=== PATIENT | male | born 1955 | race Caucasian/White ===

== ENCOUNTER → 2017-10-19 | Outpatient (CLI) | payer OTHER ==
[~2017-10-19] MED LIST: GADOBUTROL 10 ML VIAL IVP ONE
== END ==
LOC: FIMAGING 09:48
PROVIDERS: ATTEND Surgery
DX: H93.12 Tinnitus, left ear (principal); Q79.6 Ehlers-Danlos syndromes; I71.3 Abdominal aortic aneurysm, ruptured; G96.19 Other disorders of meninges, not elsewhere classified; R94.02 Abnormal brain scan
CPT/HCPCS: A9585

== ENCOUNTER → 2017-10-27 | Outpatient (CLI) | payer OTHER ==
[~2017-10-27] MED LIST changes: -GADOBUTROL 10 ML VIAL IVP ONE; +LIDOCAINE 1% 300 MG/30 ML SDV ONE
[2017-10-27 12:28] LABS: CSF APPEARANCE CLEAR (CLEAR); CSF COLOR COLORLESS (COLORLESS); WBC, CSF 0 /mm3 (0-5)
[2017-10-27 14:04] LABS: PROTEIN, CSF 79 mg/dL (12-60)
== END ==
LOC: FIMAGING 08:28
PROVIDERS: ATTEND Surgery
PROC: 009U3ZX Drainage of Spinal Canal, Percutaneous Approach, Diagnostic (ICD-10-PCS; principal; 2017-10-27)
DX: M54.2 Cervicalgia (principal); R93.0 Abnormal findings on diagnostic imaging of skull and head, not elsewhere classified

== ENCOUNTER → 2017-11-20 | Outpatient (CLI) | payer OTHER ==
[~2017-11-20] MED LIST changes: +IOPAMIDOL (ISOVUE 370) 100 ML BTL IV ONE; -LIDOCAINE 1% 300 MG/30 ML SDV ONE
== END ==
LOC: FIMAGING 08:38
PROVIDERS: ATTEND Psychiatry & Neurology Neurology
DX: H93.A2 Pulsatile tinnitus, left ear (principal); I65.23 Occlusion and stenosis of bilateral carotid arteries
CPT/HCPCS: Q9967

== ENCOUNTER 2019-02-28 06:52 | Emergency (ER) | payer OTHER ==
[2019-02-28 07:22] LABS: PLATELET COUNT 183 10^3/uL (150-400)
[2019-02-28] MEDS ORDERED: NS 500 ML IV ONE (07:49)
--- NOTE | 2019-02-28 07:53 | EDPHY ---
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 Onset of intermittent substernal chest pain 2 months ago. The pain is now persistent x2 weeks. The pain radiates to the back and is moderate, 7/10. The pain increases with movement. No associated shortness of breath, dizziness or diaphoresis. No exertional pain. REVIEW OF SYSTEMS: complete 10 point ROS reviewed and is negative except for the noted elements in the HPI - Personal History Current Tetanus/Diphtheria Vaccine: Yes Current Tetanus Diphtheria and Acellular Pertussis (TDAP): Yes - Medical/Surgical History Hx Asthma: No Hx Chronic Respiratory Disease: No Hx Diabetes: Yes Hx Cardiac Disease: Yes Hx Renal Disease: No Hx Cirrhosis: No Hx Alcoholism: No Hx HIV/AIDS: No Hx Splenectomy or Spleen Trauma: No Other PMH: AAA with repair, DM, joaquin-danlos syndrome - Family History Significant Family History: No pertinent family hx - Social History Smoking Status: Current every day smoker - Physical Exam Exam: General Appearance: Alert, pleasant Eyes: Pupils equal and round, no conjunctival pallor or injection ENT, Mouth: Mucous membranes moist Neck: Normal inspection Respiratory: Lungs are clear to auscultation Cardiovascular: Irregular rate and rhythm Gastrointestinal: Abdomen is soft and nontender Neurological: A&O, nonfocal, normal gait Skin: Warm and dry Extremities: Nontender, no pedal edema Psychiatric: Mood and affect normal Constitutional: Initial Vital Signs Temperature (C) 36.5 C 02/28/19 06:55 Heart Rate 51 L 02/28/19 06:55 Respiratory Rate 16 02/28/19 06:55 Blood Pressure 160/70 H 02/28/19 06:55 O2 Sat (%) 94 02/28/19 06:55 O2 Delivery Mode Room Air Allergies/Adverse Reactions: carbamazepine Allergy (Verified 02/28/19 09:38) Itching shellfish derived Allergy (Verified 02/28/19 07:01) Home Medications: Medication Instructions Recorded Bimatoprost 0.01% [Lumigan 0.01% 2 drop EACHEYE 10/25/17 (*)] metFORMIN HCL [Glucophage 500 mg 500 mg PO BIDMEAL 10/25/17 (*)] Medical Decision Making - Diagnostics EKG Interpretation: EKG interpreted by me reveals sinus rhythm, rate 83, ventricular bigeminy, LVH. Interpretation: Abnormal EKG Imaging Results: Imaging Impressions Chest X-Ray 02/28/19 07:15 Impression: Clear lungs. No acute process. Chest/Thorax CTA 02/28/19 07:50 Impression: 1. No visible etiology for the patient's pain. 2. Coronary artery atherosclerosis. 3. Stable small pulmonary nodules since 2008 compatible with a benign etiology. 4. Mild centrilobular and paraseptal emphysema. 5. Additional findings as above. Findings discussed with Anastasia Nair on 02/28/2019 at 8:44 a.m. 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 Stat EKG reveals no evidence of ischemia. Chest x-ray is unremarkable. Concern for aortic dissection, CTA chest performed and reveals COPD and coronary artery disease. No evidence of central pulmonary embolism or aortic dissection. Results discussed with the patient and his . He continues to have 7/10 chest pain. Unsure if he took aspirin this morning. Options discussed with the patient, shared decision making. Will admit for further evaluation of chest pain. The patient was stable throughout his emergency department stay. The hospitalist service was consulted for admission. Repeat EKG unchanged and repeat troponin normal. Differential Diagnosis: Differential diagnosis includes though it is not limited to pneumonia, pneumothorax, pulmonary embolism, aortic dissection, pericarditis, acute coronary syndrome. - Data Points Laboratory Results: Laboratory Results 02/28/19 07:11 02/28/19 07:11 02/28/19 02/28/19 02/28/19 07:15 07:11 07:11 WBC RBC Hgb Hct MCV MCH MCHC RDW Plt Count MPV Neut % (Auto) Lymph % (Auto) [place] % (Auto) Eos % (Auto) Baso % (Auto) Nucleat RBC Rel Count Absolute Neuts (auto) Absolute Lymphs (auto) Absolute Monos (auto) Absolute Eos (auto) Absolute Basos (auto) Absolute Nucleated RBC Immature Gran % Immature Gran # D-Dimer 0.99 ug/mLFEU H ug/mLFEU (0.00-0.50) Sodium Potassium Chloride Carbon Dioxide Anion Gap BUN Creatinine Estimated GFR Glucose Calcium Magnesium 2.2 mg/dL mg/dL (1.6-2.3) POC Troponin I 0.00 ng/mL ng/mL (0.00-0.08) NT-Pro-B Natriuret Pep 02/28/19 02/28/19 07:11 07:11 WBC 9.67 10^3/uL H 10^3/uL (3.80-9.50) RBC 5.27 10^6/uL 10^6/uL (4.40-6.38) Hgb 17.0 g/dL g/dL (13.7-17.5) Hct 47.8 % % (40.0-51.0) MCV 90.7 fL fL (81.5-99.8) MCH 32.3 pg pg (27.9-34.1) MCHC 35.6 g/dL g/dL (32.4-36.7) RDW 13.1 % % (11.5-15.2) Plt Count 183 10^3/uL 10^3/uL (150-400) MPV 8.9 fL fL (8.7-11.7) Neut % (Auto) 59.1 % % (39.3-74.2) Lymph % (Auto) 30.3 % % (15.0-45.0) [place] % (Auto) 7.5 % % (4.5-13.0) Eos % (Auto) 2.1 % % (0.6-7.6) Baso % (Auto) 0.7 % % (0.3-1.7) Nucleat RBC Rel Count 0.0 % % (0.0-0.2) Absolute Neuts (auto) 5.71 10^3/uL 10^3/uL (1.70-6.50) Absolute Lymphs (auto) 2.93 10^3/uL 10^3/uL (1.00-3.00) Absolute Monos (auto) 0.73 10^3/uL 10^3/uL (0.30-0.80) Absolute Eos (auto) 0.20 10^3/uL 10^3/uL (0.03-0.40) Absolute Basos (auto) 0.07 10^3/uL 10^3/uL (0.02-0.10) Absolute Nucleated RBC 0.00 10^3/uL 10^3/uL (0-0.01) Immature Gran % 0.3 % % (0.0-1.1) Immature Gran # 0.03 10^3/uL 10^3/uL (0.00-0.10) D-Dimer Sodium 141 mEq/L mEq/L (135-145) Potassium 4.7 mEq/L mEq/L (3.5-5.2) Chloride 110 mEq/L mEq/L (97-110) Carbon Dioxide 21 mEq/l L mEq/l (22-31) Anion Gap 10 mEq/L mEq/L (6-14) BUN 27 mg/dL H mg/dL (7-23) Creatinine 1.0 mg/dL mg/dL (0.7-1.3) Estimated GFR > 60 Glucose 149 mg/dL H mg/dL (70-100) Calcium 9.6 mg/dL mg/dL (8.5-10.4) Magnesium POC Troponin I NT-Pro-B Natriuret Pep 416 pg/mL H pg/mL (0-125) Medications Given: Discontinued Medications Aspirin (Aspirin) 324 mg PO EDNOW ONE Stop: 02/28/19 08:57 Last Admin: 02/28/19 09:18 Dose: 324 mg Sodium Chloride (Ns) 500 mls @ 1,000 mls/hr IV EDNOW ONE PRN Reason: Protocol Stop: 02/28/19 08:18 Last Admin: 02/28/19 08:10 Dose: 500 mls Metformin HCl (Glucophage Xr) 500 mg PO ONCE ONE Stop: 02/28/19 09:34 Last Admin: 02/28/19 09:48 Dose: Not Given Point of Care Test Results: Chemistry 02/28/19 07:15 POC Troponin I 0.00 ng/mL ng/mL (0.00-0.08) Departure - Departure Disposition: [facility] Inpatient Acute Clinical Impression: Chest pain Qualifiers: Chest pain type: precordial pain Qualified Code(s): R07.2 - Precordial pain Condition: Fair
[2019-02-28] MEDS ORDERED: IOPAMIDOL (ISOVUE 370) 100 ML BTL IV ONE (07:54)
[2019-02-28] MEDS ORDERED: ASPIRIN 81 MG CHEWABLE TAB PO ONE (08:56)
[2019-02-28] MEDS ORDERED: metFORMIN SR 500 MG TAB PO ONE (09:33)
[2019-02-28] MEDS ORDERED: ACETAMINOPHEN 325 MG TAB PO PRN (09:48)
[2019-02-28] MEDS ORDERED: NITROGLYCERIN 0.4 MG BTL SL PRN (09:48)
[2019-02-28] MEDS ORDERED: ONDANSETRON 4 MG/2 ML VIAL IVP PRN (09:48)
[2019-02-28] MEDS ORDERED: D50W 25 GM/50 ML SYR IVP PRN (09:50)
--- NOTE | 2019-02-28 09:51 | PDGENHP ---
History and Physical - Chief Complaint chest pain - History of Present Illness 63yo M with Joaquin-Danlos, prior aortic aneurysm rupture s/p grafting, diabetes , tobacco use presents with chest pain. This has been ongoing for months. He came in today because it was more severe than usual. Lasts hours at a time. Substernal with some radiation to back. Not exertional or pleuritic. Sometimes gets better with certain movements and when he drinks cold water. He has no prior history of coronary disease. Last stress test was >10 years ago. In the ED , initial ECG and troponin were negative for active ischemia. He had a CTA of his chest that was negative for PE or aortic aneurysm. He is being admitted for further evaluation. 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 No premature family CAD. - Social History Smoking Status: Current every day smoker (1 pack/day for >40 years) Alcohol Use: None Drug Use: None Additional social history: Lives with , who is at bedside. Review of Systems Review of Systems: ROS: 10pt was reviewed & negative except for what was stated in HPI & below Physical Exam Physical Exam: Temp Pulse Resp BP Pulse Ox 36.5 C 67 18 147/107 H 95 02/28/19 06:55 02/28/19 09:18 02/28/19 09:18 02/28/19 09:18 02/28/19 09:18 Constitutional: no apparent distress, appears nourished, not in pain Eyes: PERRL, anicteric sclera, EOMI Ears, Nose, Mouth, Throat: moist mucous membranes, hearing normal, ears appear normal, no oral mucosal ulcers Cardiovascular: regular rate and rhythym, no murmur, rub, or gallop, other ( appears to be in bigeminy), No edema Respiratory: no respiratory distress, no rales or rhonchi, clear to auscultation Gastrointestinal: normoactive bowel sounds, soft, non-tender abdomen, no palpable masses Genitourinary: no bladder fullness, no bladder tenderness Skin: warm, normal color, no rashes or abrasions, no fluctuance, no induration, No mottled Musculoskeletal: full muscle strength, no muscle tenderness, normal joint ROM, no joint effusions Neurologic: AAOx3 Psychiatric: interacting appropriately Lab Data & Imaging Review 02/28/19 07:11 02/28/19 07:11 WBC 9.67 10^3/uL (3.80-9.50) H 02/28/19 07:11 RBC 5.27 10^6/uL (4.40-6.38) 02/28/19 07:11 Hgb 17.0 g/dL (13.7-17.5) 02/28/19 07:11 Hct 47.8 % (40.0-51.0) 02/28/19 07:11 MCV 90.7 fL (81.5-99.8) 02/28/19 07:11 MCH 32.3 pg (27.9-34.1) 02/28/19 07:11 MCHC 35.6 g/dL (32.4-36.7) 02/28/19 07:11 RDW 13.1 % (11.5-15.2) 02/28/19 07:11 Plt Count 183 10^3/uL (150-400) 02/28/19 07:11 MPV 8.9 fL (8.7-11.7) 02/28/19 07:11 Neut % (Auto) 59.1 % (39.3-74.2) 02/28/19 07:11 Lymph % (Auto) 30.3 % (15.0-45.0) 02/28/19 07:11 [place] % (Auto) 7.5 % (4.5-13.0) 02/28/19 07:11 Eos % (Auto) 2.1 % (0.6-7.6) 02/28/19 07:11 Baso % (Auto) 0.7 % (0.3-1.7) 02/28/19 07:11 Nucleat RBC Rel Count 0.0 % (0.0-0.2) 02/28/19 07:11 Absolute Neuts (auto) 5.71 10^3/uL (1.70-6.50) 02/28/19 07:11 Absolute Lymphs (auto) 2.93 10^3/uL (1.00-3.00) 02/28/19 07:11 Absolute Monos (auto) 0.73 10^3/uL (0.30-0.80) 02/28/19 07:11 Absolute Eos (auto) 0.20 10^3/uL (0.03-0.40) 02/28/19 07:11 Absolute Basos (auto) 0.07 10^3/uL (0.02-0.10) 02/28/19 07:11 Absolute Nucleated RBC 0.00 10^3/uL (0-0.01) 02/28/19 07:11 Immature Gran % 0.3 % (0.0-1.1) 02/28/19 07:11 Immature Gran # 0.03 10^3/uL (0.00-0.10) 02/28/19 07:11 D-Dimer 0.99 ug/mLFEU (0.00-0.50) H 02/28/19 07:11 Sodium 141 mEq/L (135-145) 02/28/19 07:11 Potassium 4.7 mEq/L (3.5-5.2) 02/28/19 07:11 Chloride 110 mEq/L (97-110) 02/28/19 07:11 Carbon Dioxide 21 mEq/l (22-31) L 02/28/19 07:11 Anion Gap 10 mEq/L (6-14) 02/28/19 07:11 BUN 27 mg/dL (7-23) H 02/28/19 07:11 Creatinine 1.0 mg/dL (0.7-1.3) 02/28/19 07:11 Estimated GFR > 60 02/28/19 07:11 Glucose 149 mg/dL (70-100) H 02/28/19 07:11 Calcium 9.6 mg/dL (8.5-10.4) 02/28/19 07:11 POC Troponin I 0.00 ng/mL (0.00-0.08) 02/28/19 07:15 NT-Pro-B Natriuret Pep 416 pg/mL (0-125) H 02/28/19 07:11 Interpretation: CXR: clear lungs, no acute process (reviewed by me) EKG additional interpertation: ECG: sinus, ventricular bigeminy with likely LVH , left atrial enlargement, no ST elevations (reviewed by me) Assessment & Plan Assessment: 63yo M with Joaquin-Danlos, prior aortic aneurysm rupture s/p grafting, diabetes , tobacco use presents with chest pain. Plan: #Chest pain: PE and aortic dissection ruled out. HEART score 5 indicating further work up needed. Initial troponin and ECG non-ischemic. - Serial troponin/ECG - Ordered lexiscan stress w/NM if above negative (unable to walk, LVH) #Ventricular bigeminy: Not present on 2014 ECG. - Check magnesium, ischemic eval as above, monitor on telemetry #Diabetes, non-insulin dependent - Hold metformin in setting of contrast. Start SSI, achs glucose checks #H/o aortic anuerysm rupture s/p graft in 2008 #[place] #Tobacco use: Smokes 1 pack/day. VTE ppx: low risk Code: full Dispo: Admit under observation
[2019-02-28] MEDS ORDERED: INSULIN LISPRO 100 UNIT/ML SC SCH (12:00)
--- NOTE | 2019-02-28 13:51 | PDDCSUM ---
Discharge Summary Discharge Summary: Date of Admission: 02/28/2019 Date of Discharge: 02/28/2019 Studies: CTA chest Discharge Diagnoses: 1. Chest pain 2. Ventricular bigeminy 3. Non-insulin dependent diabetes 4. H/o aortic aneurysm rupture s/p graft repair in 2008 5. Joaquin-Danlos syndrome 6. Ongoing tobacco use Brief Hospital Course: 63yo M with Joaquin-Danlos, prior aortic aneurysm rupture s/p graft repair, diabetes, heavy smoker presented with chest pain. This has been ongoing for months but was more severe today prompting presentation. ECG and troponin x2 were negative for active ischemia. A CTA of his chest was negative for PE and aortic dissection. HEART score of 5 indicated further work up. Patient was initially agreeable to lexiscan stress w/NM however subsequently refused and wanted to go home. He understands the risks of not having this test, including worsening chest pain, [place], and . He has sound decision making capacity. Return precautions were given and he plans to follow up with his PCP within the week. I did advise him to begin taking aspirin 81mg once daily and strongly advised that he quit smoking. Medications: Please refer to EMR. I recommended he begin aspirin 81mg daily. Otherwise no changes. Follow Up Plan: PCP within 1 week to discuss symptoms and referral to outpatient cardiac stress testing.
[2019-02-28 14:28] VITALS: BP 174/86
--- NOTE | 2019-02-28 14:53 | CPEKG ---
Test Reason : OPEN Blood Pressure : / mmHG Vent. Rate : 083 BPM Atrial Rate : 031 BPM P-R Int : 166 ms QRS Dur : 082 ms QT Int : 411 ms P-R-T Axes : 066 044 033 degrees QTc Int : 483 ms Sinus rhythm Ventricular bigeminy Left atrial enlargement Probable left ventricular hypertrophy Confirmed by Anastasia Nair ([id number]) on 02/28/2019 2:52:59 PM Referred By: Anastasia Nair Confirmed By:Anastasia Nair
[2019-02-28] MEDS ORDERED: BIMATOPROST 0.01% 2.5 ML OPHT.BTL EACHEYE SCH (21:00)
--- NOTE | 2019-03-01 07:46 | CPEKG ---
Test Reason : OPEN Blood Pressure : / mmHG Vent. Rate : 061 BPM Atrial Rate : 062 BPM P-R Int : 155 ms QRS Dur : 088 ms QT Int : 430 ms P-R-T Axes : 051 016 004 degrees QTc Int : 433 ms Sinus rhythm Ventricular trigeminy Confirmed by Collin Britton ([id number]) on 03/01/2019 7:45:56 AM Referred By: Brendon Simmons Confirmed By:Collin Britton
== END 2019-02-28 14:29 | disposition still patient (30) ==
LOC: UNDOADMOB 09:02
DX: R07.2 Precordial pain (principal); E11.9 Type 2 diabetes mellitus without complications; Q79.6 Ehlers-Danlos syndromes; Z79.4 Long term (current) use of insulin
CPT/HCPCS: 84484-ER; Q9967